=== PATIENT | male | born 1955 | race Caucasian/White ===

== ENCOUNTER 2016-10-21 05:13 | Inpatient (IN) | payer BC, OTHER ==
--- NOTE | 2016-09-28 14:21 | PAT Medication Instructions ---
Service Date Sep 28, 2016. Current Home Medication List Aspirin (Aspirin Ec), 81 MG PO HS Docusate Sodium (Docusate Sodium), 1 CAP PO BID Gabapentin (Neurontin), 1,200 MG PO BID Levothyroxine Sodium (Synthroid), 100 MCG PO QAM Metformin Hcl (Glucophage), 1,000 MG PO BID Naproxen (Naprosyn), 500 MG PO PRN Pravastatin (Pravachol ), 40 MG PO HS Pyridoxine (Vitamin B6), 100 MG PO BID Quinapril Hcl (Accupril), 5 MG PO QAM Thiamine Mononitrate (Vitamin B1), 100 MG PO BID Vitamins C & E (Vitamin C), 1 TAB PO QAM [Glimepiride], 1 TAB PO PRN [Iron], 1 TAB PO QAM Medication Instructions For Your Scheduled Surgery - Check with surgeon for instructions: Naproxen (Naprosyn), 500 MG PO PRN - Hold the following medications 48 hours prior to surgery: Metformin Hcl (Glucophage), 1,000 MG PO BID - Hold the following medications the morning of surgery: [Glimepiride], 1 TAB PO PRN Thiamine Mononitrate (Vitamin B1), 100 MG PO BID Vitamins C (Vitamin C), 1 TAB PO QAM [Iron], 1 TAB PO QAM Quinapril Hcl (Accupril), 5 MG PO QAM Docusate Sodium (Docusate Sodium), 1 CAP PO BID Pyridoxine (Vitamin B6), 100 MG PO BID - Take the following medications the morning of surgery with a sip of water: Levothyroxine Sodium (Synthroid), 100 MCG PO QAM Gabapentin (Neurontin), 1,200 MG PO BID - Take the following medications as scheduled the night before surgery: Thiamine Mononitrate (Vitamin B1), 100 MG PO BID Gabapentin (Neurontin), 1,200 MG PO BID Docusate Sodium (Docusate Sodium), 1 CAP PO BID Aspirin (Aspirin Ec), 81 MG PO HS (okay to continue per surgeon) Pravastatin (Pravachol ), 40 MG PO HS Pyridoxine (Vitamin B6), 100 MG PO BID If you have any questions please call us at [phone] or [phone] or [phone]
[2016-09-28 14:50] LABS: BASO % 0.4 %; BASO ABS # 0.02 K/uL (0-0.2); COMPLETE YES; EOS % 2.6 %; HEMATOCRIT 36.7 % (42-52); IG% 0.2 %; LYMPH % 29.5 %; LYMPH ABS # 1.62 K/uL (1.2-3.4); MEAN CELL VOLUME 93.4 fL (80-100); MEAN CORPUSCULAR HEMOGLOBIN 31.8 pg (25-34); MEAN CORPUSCULAR HGB CONC 34.1 g/dl (32-36); MEAN PLATELET VOLUME 9.2 fL (7.4-10.4); MONO % 10.6 %; NEUT % 56.7 %; PLATELET COUNT 163 K/uL (130-400); RED BLOOD COUNT 3.93 M/uL (4.7-6.1); WHITE BLOOD COUNT 5.49 K/uL (4.8-10.8)
[2016-09-28 14:56] LABS: BUN/CREATININE RATIO 21.4 (10-20); CALCIUM 9.1 mg/dl (8.5-10.1); CREATININE 0.94 mg/dl (0.60-1.40); POTASSIUM 5.1 mmol/L (3.5-5.1)
[2016-09-28 14:58] LABS: URINE APPEARANCE CLEAR (CLEAR); URINE BILIRUBIN NEG (NEG); URINE COLOR YELLOW; URINE NITRITE NEG (NEG); URINE SPECIFIC GRAVITY 1.021 (1.000-1.030); UROBILINOGEN NEG (NEG)
[2016-09-28 14:59] LABS: PARTIAL THROMBOPLASTIN RATIO 1.1; PROTHROMBIN TIME (PATIENT) 10.2 SECONDS (9.0-12.0)
[2016-09-28 15:00] LABS: MANUAL MICROSCOPIC REQUIRED? NO; REVIEW REQ? NO
--- NOTE | 2016-10-20 16:52 | HISTORY & PHYSICAL EXAMINATION ---
DATE OF ADMISSION: 10/21/2016 CHIEF COMPLAINT: Severe osteoarthritis of the left hip. HISTORY OF PRESENT ILLNESS: Dago is a pleasant 61-year-old male who presented to my office with chronic left hip pain. He states he fractured his hip about 27 years ago. He had a screw placed and then later removed. Unfortunately, he has gone on to develop advanced osteoarthritis of the left hip. He has difficulty ambulating. He has elected to proceed with a left total hip arthroplasty. PAST MEDICAL HISTORY: Significant for non-insulin diabetes and hypertension and hypothyroidism. PAST SURGICAL HISTORY: Significant for spinal surgery x2 and a left hip fracture in 1989. ALLERGIES: PENICILLIN. MEDICATIONS: Metformin 1000 mg twice a day, quinapril 5 mg daily, pravastatin 40 mg daily, Synthroid 100 mcg daily, gabapentin 600 mg 4 times a day, baby aspirin, vitamin B1, vitamin B6, docusate and Naprosyn as needed. FAMILY HISTORY: Noncontributory. SOCIAL HISTORY: He is , has 1-2 drinks a day. Denies any tobacco or IV drug use. He remains active. REVIEW OF SYSTEMS: He complains of severe left hip pain. All other pertinent review of systems is negative. PHYSICAL EXAMINATION: GENERAL: He is awake, alert and oriented x3. He is in no apparent distress. He is very pleasant. HEENT: Pupils are equal, round and reactive to light. Extraocular motions intact. Oral mucosa is pink and moist. HEART: Regular rate per radial pulse. LUNGS: Sonia symmetrically bilaterally with no audible breath sounds. ABDOMEN: Soft, nontender, nondistended. MUSCULOSKELETAL: On physical examination of the left hip. He has severely decreased range of motion and flexion barely to 90 degrees, with zero internal or external rotation. He walks with a very antalgic gait. His leg lengths are essentially equal. IMAGING: X-rays of the hip do show advanced osteoarthritis of the left hip with complete loss of joint space and osteophyte formation. IMPRESSION: Advanced osteoarthritis of the left hip. PLAN: We will proceed with a left total hip arthroplasty. Postoperatively, he will be started on aspirin for DVT prophylaxis. He will likely stay for 2 midnights for postoperative medical management. [facility]
[~2016-10-21] VITALS: Ht 180.3 cm; Wt 65.5 kg
[2016-10-21] VITALS (10 sets, daily range): BP systolic 101–118; BP diastolic 59–72; PULSE 50–85; TEMP 36.3–36.5; O2SAT 95–100; Ht 180.3 cm; Wt 65.5 kg
[~2016-10-21 05:13] MED LIST: ASPI81TA28 PO; DOCU100C31 PO; GABA-113 PO; GLIMEPIRIDE PO; IRON PO; LEVO100T PO; METF-384 PO; NAPR-1169 PO; PRAV20TA PO; PYRI100T4 PO; QUIN10TA25 PO; THIA1TAB11 PO; VITACAP26 PO
[2016-10-21] MEDS: LEVOTHYROXINE 100 MCG TAB PO SCH (06:00)
[2016-10-21] MEDS ORDERED: LACTATED RINGER'S 1000ML IV SCH (06:00)
[2016-10-21] MEDS ORDERED: LACTATED RINGER'S 1000ML 500 ML IV ONE (06:00)
[2016-10-21] MEDS ORDERED: ACETAMINOPHEN 500 MG TAB PO SCH (06:00)
[2016-10-21] MEDS ORDERED: ROPIVACAINE 5MG/ML 30 ML 150 MG, BUPIVACAINE/EPINEPHR 0.5% MPF 30 ML, KETOROLAC TROMETH... INFIL SCH ×7 (06:00)
[2016-10-21] MEDS ORDERED: LACTATED RINGER'S 1000ML 1,000 ML IV SCH (06:00)
[2016-10-21] MEDS ORDERED: FAMOTIDINE 20 MG TAB PO SCH (06:00)
[2016-10-21] MEDS ORDERED: VANCOMYCIN 1GM/270ML NSS 270 ML IV SCH (06:00)
[2016-10-21] MEDS ORDERED: GABAPENTIN 300 MG CAP PO SCH (06:00)
[2016-10-21] MEDS ORDERED: BUPIVACAINE 0.5 % 5 MG/1 ML PF 10ML VIAL ONE (06:28)
[2016-10-21] MEDS: TRANEXAMIC ACID INJ 1,000 MG in SODIUM CHLORIDE 0.9% 100ML 100 ML IV SCH ×2 (06:30→06:55)
--- NOTE | 2016-10-21 06:32 | History & Physical Bridge Note ---
H&P Re-Evaluation Bridge Note: I have examined the patient, reviewed the History & Physical and in the interval since the performance of the History & Physical I have noted the following changes of clinical significance: No changes noted
[2016-10-21] MEDS ORDERED: ORTHO JOINT ANESTHETIC ONE (06:35)
[2016-10-21] MEDS ORDERED: BACITRACIN 50000 UNIT VIAL ONE ×2 (06:35→06:40)
[2016-10-21] MEDS ORDERED: FENTANYL CITRATE INJ 50 MCG/1 ML 2 ML VIAL ONE (06:46)
[2016-10-21] MEDS ORDERED: MIDAZOLAM HCL 1 MG/ML 2ML VIAL ONE ×2 (06:46)
[2016-10-21] MEDS ORDERED: PROPOFOL IV EMULSION 10 MG/ML 20 ML VIAL IV ONE (07:53)
--- NOTE | 2016-10-21 08:48 | [facility] Post Operative Brief Note ---
Immediate Operative Summary Operative Date Oct 21, 2016. Pre-Operative Diagnosis Advanced Osteoarthritis Left Hip Post-Operative Diagnosis Advanced Osteoarthritis Left Hip Procedure(s) Performed Left Anterior Total Hip Arthroplasty--Uncemented Surgeon Dr. Norwood Crate Tier Surgeon(s) BRYON Miller Estimated Blood Loss 150 ml Findings as above Specimens A. Left Femoral Head Complication(s) None Disposition Recovery Room / PACU
[2016-10-21] MEDS ORDERED: SOD PHOSPHATE/SOD BIPHOSPHATE ENEMA 132 ML BTL PR PRN (09:00)
[2016-10-21] MEDS ORDERED: DEXTROSE 50% 50 ML SYR IV PRN (09:00)
[2016-10-21] MEDS ORDERED: DOCUSATE SODIUM 100 MG CAP PO SCH (09:00)
[2016-10-21] MEDS ORDERED: MAGNESIUM HYDROXIDE SUSP 30 ML UDC PO PRN (09:00)
[2016-10-21] MEDS ORDERED: GLUCOSE 40% GEL 15 GM TUBE PO PRN (09:00)
[2016-10-21] MEDS ORDERED: SILVER SULFADIAZINE 1% CR 50 GM JAR EXT PRN (09:00)
[2016-10-21] MEDS ORDERED: METOCLOPRAMIDE HCL INJ 5 MG/ML 2 ML VIAL IV PRN (09:00)
[2016-10-21] MEDS ORDERED: MoRPHine SULFATE 2 MG/ML CARP IV PRN (09:00)
[2016-10-21] MEDS ORDERED: GLUCOSE 10 TABS/TUBE PO PRN (09:00)
[2016-10-21] MEDS ORDERED: BISACODYL 10 MG SUPP PR PRN (09:00)
[2016-10-21] MEDS ORDERED: ONDANSETRON INJ 2 MG/ML 2 ML VIAL IV PRN ×2 (09:00→09:30)
[2016-10-21] MEDS ORDERED: GLUCAGON FOR INJ 1 MG VIAL SQ PRN (09:00)
--- NOTE | 2016-10-21 09:07 | DIAGNOSTIC IMAGING REPORT ---
FLUOROSCOPIC IMAGES OF THE LEFT HIP CLINICAL HISTORY: LEFT ANTERIOR HIP COMPARISON STUDY: Pelvis and left hip radiograph September 28, 2016. Fluoroscopy time: 33 seconds. FINDINGS: 3 intraoperative fluoroscopic images during total left hip arthroplasty were obtained. Hardware is intact. An acetabular screw is noted. There is no acute fracture or unexpected radiopaque foreign body. IMPRESSION: Expected intraoperative findings during total left hip arthroplasty. Electronically signed by: Judah Sapp M.D. 10/21/2016 9:06 AM Dictated Date/Time: 10/21/2016 9:04 AM
--- NOTE | 2016-10-21 09:16 | OPERATIVE REPORT ---
DATE OF OPERATION: 10/21/2016 PREOPERATIVE DIAGNOSIS: Primary osteoarthritis of the left hip. POSTOPERATIVE DIAGNOSIS: Same. PROCEDURE: Left total hip arthroplasty. SURGEON: Dr. Gentry Norwood. UMBRELLA TIPPER: Osmel Denny PA-C, whose assistance was necessary for retraction and closure. ANESTHESIA: Spinal. COMPLICATIONS: None. CONDITION: Stable to PACU. IMPLANTS USED: I used a [employer] Taperloc total hip arthroplasty system with a size 13 standard offset pressfit Taperloc stem, a size 52 G7 cup with a single 25 mm screw, E1 poly liner and a size 36 0 neck ceramic head. INDICATIONS: Dago is a pleasant 61-year-old male who initially injured his hip about 27 years ago. Apparently he states he had a screw placement in his hip and then later removed. Unfortunately, he has gone on to develop arthritis of his hip. After failing extensive conservative treatment, he has elected to proceed with a total hip arthroplasty. OPERATION AND FINDINGS: On 10/21/2016 he arrived at [facility] for the above procedure. He was seen in the preoperative holding area and the operative extremity was identified and signed. He was given a preoperative antibiotic and a spinal anesthetic. He was taken back to the operating room, laid on the table in supine position and given basic sedation. The left leg was brought out to a Purist leg positioner and the left hip was prepped and draped in sterile fashion. Time-out was done and the patient's extremity was properly identified. An anterior approach was used. Dissection was taken down to the tensor and the tensor was retracted laterally and the rectus was retracted medially. The circumflex vessels were ligated and the capsule was easily exposed. The capsule was incised for later repair. The hip was exposed and the femoral neck was resected. The femoral head was then removed. The acetabulum was then exposed. Sequential reaming up to a size 51 reamer was done. This was done under fluoroscopy. A final size 52 G7 cup was then impacted into place. A single 25 mm screw was placed and the A1 poly was snapped into place. The proximal femur was then exposed. Sequential broaching up to a size 13 broach was done. A standard humeral neck and humeral head was trialed. This seemed to give a good fit. Fluoroscopic images showed anatomic alignment. The hip was then dislocated. The trials were removed. The final Taperloc standard offset size 13 stem was impacted into place. A 0 neck size 36 ceramic head was then impacted on the stem and the hip was reduced. Final fluoroscopic x-rays showed anatomic alignment and length. The wound was then irrigated. The surrounding soft tissues were injected with 100 mL orthopedic pain control cocktail. The wound was then irrigated again with 3 liters of normal saline solution with bacitracin. The capsule was then closed with #1 Vicryl sutures, the fascia was closed with #1 PDS suture, skin was closed with 3-0 Vicryl, a 3-0 V-Loc suture and topher. He was placed in a soft compressive dressing and taken to the postanesthesia care unit in stable condition. He tolerated the procedure well. I attest to the content of the Intraoperative Record and any orders documented therein. Any exception s are noted below.
--- NOTE | 2016-10-21 09:24 | DIAGNOSTIC IMAGING REPORT ---
AP PELVIS, CROSSTABLE LATERAL LEFT HIP History: Left total hip arthroplasty. Degenerative arthritis. Postop. FINDINGS: The patient is status post a left total hip arthroplasty. The hardware is intact. No fracture or dislocation. Skin topher are in place. IMPRESSION: Left total hip arthroplasty. No evidence for hardware complication. Electronically signed by: Khurram Hui M.D. 10/21/2016 9:22 AM Dictated Date/Time: 10/21/2016 9:21 AM
[2016-10-21] MEDS ORDERED: FENTANYL CITRATE INJ 50 MCG/1 ML 2 ML VIAL IV PRN (09:30)
[2016-10-21] MEDS ORDERED: ATROPINE SULFATE 0.1 MG/ML 5ML SYR IV PRN (09:30)
[2016-10-21] MEDS ORDERED: EpHEDrine SULFATE INJ 50 MG/ML AMP IV PRN (09:30)
--- NOTE | 2016-10-21 10:15 | Anesthesiology Progress Note ---
Anesthesia Post Op Note Date & Time Oct 21, 2016 at 10:15 Vital Signs Pain Intensity: 0 Vital Signs Past 12 Hours Date Time Temp Pulse Resp B/P (MAP) Pulse Ox O2 Delivery O2 Flow Rate FiO2 10/21/16 10:00 36.4 52 16 112/68 100 Nasal Cannula 3 10/21/16 09:45 54 14 116/66 100 Nasal Cannula 3 10/21/16 09:35 54 16 111/67 100 Nasal Cannula 3 10/21/16 09:25 60 16 110/66 100 Nasal Cannula 3 10/21/16 09:15 54 16 117/64 100 Nasal Cannula 3 10/21/16 09:05 48 16 111/61 100 Nasal Cannula 3 10/21/16 08:56 36.6 52 16 99/71 100 Nasal Cannula 3 10/21/16 06:05 36.5 60 18 106/66 99 Room Air Notes Mental Status: alert / awake / arousable, participated in evaluation Pt Amnestic to Procedure: Yes Nausea / Vomiting: adequately controlled Pain: adequately controlled Airway Patency, RR, SpO2: stable & adequate BP & HR: stable & adequate Hydration State: stable & adequate Anesthetic Complications: no major complications apparent
[2016-10-21] MEDS ORDERED: PHARMACY GLYCEMIC MGMT CONSULT PRN (10:45)
[2016-10-21] MEDS: SODIUM CHLORIDE 0.9% 1000ML 1,000 ML IV SCH ×2 (11:27→21:28)
--- NOTE | 2016-10-21 11:34 | Pharmacy Progress Note ---
Glycemic Control Intl Consult Date of Service Oct 21, 2016. Scope Glycemic Pharmacist consulted by Dr Norwood on 10/21/16 for glycemic control and to write orders per [facility] inpatient glycemic control protocol Objective Weight (Kilograms): 65.500 Accuchecks BSG (last 24hrs): Test 10/21/16 05:51 Bedside Glucose 143 mg/dl (70-99) Recent Pertinent Medications Outpatient Anti-diabetic Regimen: * Metformin 1g PO BID + Glimepiride __ mg prn ? * A1c = 7 % 07/14/16 Risk Factors for Insulin Resistance: * Steroids: Ortho pre-op (contains dexamethasone 4 mg) * Recent Surgery: POD #0 s/p left total hip arthroplasty * Diet: T2DM Assessment & Plan ASSESSMENT: * 61 yr old T2DM male s/p left total hip arthroplasty * Pt is maintained on oral antidiabetic agents as an outpatient * Will hold oral agents for admission and utilize SQ basal bolus insulin regimen which is the recommended regimen for inpatient glycemic control. * Will initiate weight based insulin dosing for insulin aureila patient and titrate based on BSG trends. * ADA & AACE recommend a goal blood sugar range 140-180 mg/dl for the majority of critically ill & non-critically ill patients. However, more stringent targets may be selected in individual cases. Will utilize more stringent goal of 110-140mg/dl based on patient age & comorbidities. Additionally, tighter glycemic control is warranted to facilitate wound/infection healing. PLAN FOR INPATIENT GLYCEMIC CONTROL: * Holding outpatient oral diabetes medications * Basal insulin with LANTUS 10 units SQ x 1 dose at dinnertime - further basal insulin to be assessed on 10/22 * Correctional Insulin with NOVOLOG per scale ACHS + 00 and 04 checks with coverage * Goal Range: Low 110 mg/dL - High 140 mg/dL * Correction Factor: 30 mg/dL/unit * Nutritional / Prandial insulin per carb ratio of 1 unit per 10 grams CHO consumed * Please note that the plan above was derived based on current level of insulin resistance and hospital stress. These recommendations are appropriate for inpatient admission only. Plan of care upon discharge will need to be reassessed to avoid potential outpatient hypo/hyperglycemia. Thank you.
[2016-10-21] MEDS: KETOROLAC TROMETHAMINE 30 MG/ML VIAL IV. SCH ×3 (12:15→23:30)
[2016-10-21] MEDS: INSULIN ASPART 100 UNITS/ML 3 ML PEN SC SCH ×4 (12:17→23:34)
[2016-10-21] MEDS: ACETAMINOPHEN IV 1,000 MG in EMPTY BAG 0 ML IV SCH ×2 (14:36→21:30)
[2016-10-21] MEDS ORDERED: LANTUS PER UNIT CHARGE SQ SCH (16:00)
[2016-10-21] MEDS ORDERED: VANCOMYCIN INJ 1,000 MG in SODIUM CHLORIDE 0.9% 250ML 250 ML IV SCH (18:00)
[2016-10-21] MEDS: GABAPENTIN 600 MG TAB PO SCH (20:51)
[2016-10-21] MEDS: ASPIRIN 325 MG ECTAB PO SCH (20:51)
[2016-10-21] MEDS: DOCUSATE SODIUM 100 MG CAP PO SCH (20:51)
[2016-10-21] MEDS: PYRIDOXINE HCL 50 MG TAB PO SCH (20:52)
[2016-10-21] MEDS: SENNA 8.6 MG TAB PO SCH (20:52)
[2016-10-21] MEDS: THIAMINE HCL 100 MG TAB PO SCH (20:52)
[2016-10-21] MEDS: PRAVASTATIN SOD 20 MG TAB PO SCH (20:52)
[2016-10-22 03:46] VITALS: BP 119/75; PULSE 60; TEMP 36.3; O2SAT 96
[2016-10-22] MEDS: INSULIN ASPART 100 UNITS/ML 3 ML PEN SC SCH ×5 (03:55→21:12)
[2016-10-22] MEDS: LEVOTHYROXINE 100 MCG TAB PO SCH (05:30)
[2016-10-22] MEDS: KETOROLAC TROMETHAMINE 30 MG/ML VIAL IV. SCH ×3 (05:30→17:45)
[2016-10-22] MEDS: ACETAMINOPHEN IV 1,000 MG in EMPTY BAG 0 ML IV SCH (05:30)
[2016-10-22] MEDS: SODIUM CHLORIDE 0.9% 1000ML 1,000 ML IV SCH (06:35)
[2016-10-22 07:17] VITALS: BP 108/77; PULSE 60; TEMP 36.4; O2SAT 98
[2016-10-22 07:30] LABS: BASO % 0.3 %; BASO ABS # 0.03 K/uL (0-0.2); COMPLETE YES; EOS % 1.1 %; HEMATOCRIT 30.7 % (42-52); IG% 0.2 %; LYMPH % 16.8 %; LYMPH ABS # 1.71 K/uL (1.2-3.4); MEAN CORPUSCULAR HEMOGLOBIN 32.4 pg (25-34); MEAN CORPUSCULAR HGB CONC 34.9 g/dl (32-36); MEAN PLATELET VOLUME 9.9 fL (7.4-10.4); MONO % 11.3 %; NEUT % 70.3 %; PLATELET COUNT 128 K/uL (130-400); WHITE BLOOD COUNT 10.15 K/uL (4.8-10.8)
[2016-10-22 08:08] LABS: CALCIUM 8.2 mg/dl (8.5-10.1); CREATININE 0.69 mg/dl (0.60-1.40)
[2016-10-22 08:32] LABS: ESTIMATED AVERAGE GLUCOSE 148 mg/dl; HA1C FLAG Normal (Normal)
[2016-10-22] MEDS: ASPIRIN 325 MG ECTAB PO SCH ×2 (09:13→21:11)
[2016-10-22] MEDS: PYRIDOXINE HCL 50 MG TAB PO SCH ×2 (09:13→21:12)
[2016-10-22] MEDS: ASCORBIC ACID 500 MG TAB PO SCH (09:13)
[2016-10-22] MEDS: ENALAPRIL MALEATE 5 MG TAB PO SCH (09:14)
[2016-10-22] MEDS: MULTIVITAMIN TAB PO SCH (09:14)
[2016-10-22] MEDS: GABAPENTIN 600 MG TAB PO SCH ×2 (09:14→21:13)
[2016-10-22] MEDS: DOCUSATE SODIUM 100 MG CAP PO SCH ×2 (09:15→21:11)
[2016-10-22] MEDS: PANTOprazole SOD 40 MG TAB PO SCH (09:15)
[2016-10-22] MEDS: OXYCODONE HCL IR 5 MG TAB (IMMEDIATE RELEASE) PO PRN ×2 (09:16→19:52)
[2016-10-22 11:04] VITALS: BP_SYST 90; BP_SYST 95; BP_DIAS 56; BP_DIAS 59; PULSE 60; TEMP 36.5; O2SAT 97
--- NOTE | 2016-10-22 11:15 | PROGRESS NOTE ---
DATE: 10/22/2016 DATE: 10/22/2016 CHIEF COMPLAINT: Status post left total hip arthroplasty postop day #1. PROGRESS: Dago was seen and examined at bedside today. Overall, he is doing very well. He has already taken 2 laps around the nursing station with physical therapy. He has no pain in his hip, has no complaints. PHYSICAL EXAMINATION: LEFT HIP: The incision has a very small amount of serosanguineous drainage. There is no drain. He is neurovascularly intact. LABORATORY DATA: Show an H&H of 10.7 and 30.7. His glucose is 148. His vital signs are all stable on room air and he is voiding on his own. X-rays postoperatively of the left hip show the prosthesis to be in anatomical alignment without any evidence of fracture, dislocation or loosening. IMPRESSION: Status post left total hip arthroplasty postop day #1. PLAN: At this point, he is doing extremely well. He is on aspirin 325 mg twice a day for DVT prophylaxis. He can be up and weightbearing as tolerated. Tomorrow morning the nursing staff will change the dressing and will likely discharge him to home with home health.
[2016-10-22] MEDS: THIAMINE HCL 100 MG TAB PO SCH ×2 (12:52→21:13)
[2016-10-22] MEDS: ACETAMINOPHEN 500 MG TAB PO SCH ×2 (12:53→21:11)
[2016-10-22 15:16] VITALS: BP 105/57; PULSE 65; TEMP 36.4; O2SAT 98
[2016-10-22] MEDS: SENNA 8.6 MG TAB PO SCH (21:11)
[2016-10-22] MEDS: PRAVASTATIN SOD 20 MG TAB PO SCH (21:12)
[2016-10-22 22:51] VITALS: BP 95/58; PULSE 61; TEMP 36.3; O2SAT 97
[2016-10-23] MEDS: KETOROLAC TROMETHAMINE 30 MG/ML VIAL IV. SCH ×2 (00:46→05:39)
[2016-10-23] MEDS: LEVOTHYROXINE 100 MCG TAB PO SCH (05:39)
[2016-10-23] MEDS: ACETAMINOPHEN 500 MG TAB PO SCH (05:40)
[2016-10-23 06:41] VITALS: BP 115/61; PULSE 65; TEMP 36.7; O2SAT 90
[2016-10-23] MEDS ORDERED: ASPEC325 PO (07:30)
[2016-10-23] MEDS ORDERED: RXC5 PO (07:30)
--- NOTE | 2016-10-23 07:31 | Discharge Instructions ---
Discharge Instructions Date of Service Oct 23, 2016. Admission Reason for Admission: Left Hip Degenerative Joint Disease Discharge Discharge Diagnosis / Problem: Left Total Hip Discharge Goals Goal(s): Decrease discomfort, Improve function Activity Recommendations Activity Limitations: as noted below . Instructions / Follow-Up Instructions / Follow-Up Activity and Therapy Recommendations: * If you are using [facility] then Physical Therapy will be provided until they feel you are ready to start Outpatient Physical Therapy. If you are not using a Home Health agency then Outpatient Physical Therapy should start about 3-5 days from your day of surgery. Therapy will last about 3-6 weeks * You were shown a series of exercises in the hospital. Do these exercises three times each day including the exercises you were shown in physical therapy. * Get up and walk several times each day.~ For the first four weeks, try not to stand or walk for more than one hour at a time. If you do stand or walk for more than one hour, you will not hurt anything, but your leg will likely swell.~ ~ * As you feel comfortable, you may change from the walker or crutches to a cane and~then to independent walking. Medications: * Narcotic You will likely be sent home from the hospital with a prescription for the narcotic pain medication that worked best throughout your stay. * Aspirin Most patients will be required to take Aspirin 325mg twice a day for 6 weeks after surgery. This is obtained [id number] and a prescription is not necessary. * Other medications may be prescribed for specific circumstances. If you have any questions, please call the office at . * Resume previous home medications unless otherwise instructed TEDs/Elastic Stockings: The white elastic stockings help limit swelling and prevent blood clots from forming in your legs. The more you wear them, the more they work. Wear them for six weeks. Showering: You may shower 5 days from the day of surgery. Let the soapy shower water run over the topher. Do not scrub or soak the incision. Things To Watch For: * Drainage from the incision site that occurs more than one week after your surgery. * Increased redness at the incision site. * Fever above 102 degrees Fahrenheit. * Unusual chest pain or shortness of breath. * Call [facility] at with any of the above problems Follow-Up Visit: Follow-up with Dr. Norwood 2-3 weeks after your day of surgery. An appointment was probably scheduled when you signed-up for surgery in the office. If you have any questions call Office Instructions: More detailed instructions as well as Frequently Asked Questions were provided in a folder by our office when you signed-up for surgery. Please review these instructions when you get home. If you have any further questions or concerns, please feel free to call the office at [phone] Current Hospital Diet Patient's current hospital diet: Diabetes Type 2 Diet Discharge Diet Recommended Diet: Diabetes Type 2 Diet Procedures Procedures Performed: Left Anterior Total Hip Arthroplasty--Uncemented Pending Studies Studies pending at discharge: no Laboratory Results Hemoglobin A1c Test 10/22/16 06:42 Range/Units Estimated Average Glucose 148 mg/dl Hemoglobin A1c 6.8 H 4.5-5.6 % Medical Emergencies . Who to Call and When: Medical Emergencies: If at any time you feel your situation is an emergency, please call 911 immediately. . Non-Emergent Contact Non-Emergency issues call your: Surgeon Call Non-Emergent contact if: wound has increased drainage, wound has increased redness . "Provider Documentation" section prepared by Gentry Norwood. . VTE Core Measure Inpt VTE Proph given/why not?: Other Anticoagulation (Aspirin 325 twice a day for 6 weeks)
[2016-10-23] MEDS: OXYCODONE HCL IR 5 MG TAB (IMMEDIATE RELEASE) PO PRN (07:53)
[2016-10-23] MEDS: ENALAPRIL MALEATE 5 MG TAB PO SCH (07:53)
[2016-10-23] MEDS: DOCUSATE SODIUM 100 MG CAP PO SCH (07:53)
[2016-10-23] MEDS: PANTOprazole SOD 40 MG TAB PO SCH (07:54)
[2016-10-23] MEDS: GABAPENTIN 600 MG TAB PO SCH (07:54)
[2016-10-23] MEDS: PYRIDOXINE HCL 50 MG TAB PO SCH (07:54)
[2016-10-23] MEDS: ASPIRIN 325 MG ECTAB PO SCH (07:55)
[2016-10-23] MEDS: ASCORBIC ACID 500 MG TAB PO SCH (07:55)
[2016-10-23] MEDS: MULTIVITAMIN TAB PO SCH (07:55)
[2016-10-23] MEDS: INSULIN ASPART 100 UNITS/ML 3 ML PEN SC SCH (07:59)
--- NOTE | 2016-10-23 08:00 | PROGRESS NOTE ---
DATE: 10/23/2016 CHIEF COMPLAINT: Status post left total hip arthroplasty, postop day #2. PROGRESS: Dago was seen and examined at bedside today. Overall, he is doing very well. He really has no pain in the hip. He is working well with physical therapy, has no complaints. PHYSICAL EXAMINATION: LEFT HIP: The dressing is clean and dry and it has not changed. He is neurovascularly intact. His leg lengths were equal. IMPRESSION: Status post left total hip arthroplasty, postoperative day #2. PLAN: At this point, he is doing very well. He will be seen by physical therapy one more time this morning. We will discharge him to home with [facility] later today.
[2016-10-23 08:35] VITALS: BP 115/61; PULSE 65; TEMP 36.7; O2SAT 90
--- NOTE | 2016-10-23 22:08 | DISCHARGE SUMMARY ---
DISCHARGE DIAGNOSIS: Primary osteoarthritis of the left hip. PROCEDURE: Left total hip arthroplasty on 10/21/[address] Gentry Norwood. DISCHARGE INSTRUCTIONS: 1. Aspirin 325 mg twice a day for 6 weeks. 2. Oxycodone 5-10 mg every 4 hours as needed for pain. 3. Dulcolax 100 mg twice a day. 4. Neurontin 1200 mg twice a day. 5. Synthroid 100 mg daily. 6. Glucophage 1000 mg twice a day. 7. Naprosyn 500 mg daily. 8. Pravachol 40 mg at night. 9. Vitamin B6 100 mg twice a day. 10. Accupril 500 mg daily. 11. Vitamin B 100 mg twice a day. 12. Vitamin C 1 tab daily. 13. Glimepiride 1 tab as needed. 14. Follow up with Dr. Norwood in 2 weeks. 15. Call the office of Dr. Norwood with any questions or concerns. HOSPITAL COURSE: Dago is a pleasant 61-year-old male who presented to my office with chronic left hip pain. X-rays and clinical examination were diagnostic for osteoarthritis of the left hip. After failing conservative treatment, he elected to undergo a left total hip arthroplasty. On 10/21/2016, he arrived at [facility] and underwent a left hip replacement without complications. He had a spinal anesthetic. Postoperatively, he was discharged to general orthopedic floors. His hospital course was uneventful. On postop day #1, his H&H was stable at 10.7 and 30.7. He was able to get up and ambulate well with physical therapy. He had very little pain. On postop day #2, the dressing was changed. He continued to work well with physical therapy and his pain was controlled. He was subsequently discharged to home with oral pain medications, [facility] the above instructions.
[2016-11-18] MEDS ORDERED: OXYCODONE PO (13:40)
[2016-11-18] MEDS ORDERED: ASPI81TA28 PO (13:40)
== END 2016-10-23 10:10 | disposition home health service (06) | DRG 470 ==
LOC: C.ACU 05:13 → C.3E 08:54 → ENRESERV 09:37 → EDSTATUS 13:30
PROVIDERS: ADMIT Orthopaedic Surgery; ATTEND Orthopaedic Surgery
PROC: 0SRB0JA Replacement of Left Hip Joint with Synthetic Substitute, Uncemented, Open Approach (ICD-10-PCS; principal; 2016-10-21 07:00)
DX: M16.12 Unilateral primary osteoarthritis, left hip (principal); E78.00 Pure hypercholesterolemia, unspecified; R20.0 Anesthesia of skin; M54.2 Cervicalgia; E11.9 Type 2 diabetes mellitus without complications; M54.10 Radiculopathy, site unspecified; I10 Essential (primary) hypertension; E03.9 Hypothyroidism, unspecified; Z79.82 Long term (current) use of aspirin; Z79.84 Long term (current) use of oral hypoglycemic drugs; Z79.899 Other long term (current) drug therapy; Z79.1 Long term (current) use of non-steroidal anti-inflammatories (NSAID); Z87.891 Personal history of nicotine dependence; Z86.718 Personal history of other venous thrombosis and embolism

== ENCOUNTER → 2016-11-07 | Outpatient (CLI) | payer BC ==
[~2016-11-07] MED LIST changes: +ASPEC325 PO; +OXYCODONE PO; +RXC5 PO
[2016-11-07 14:43] LABS: SYNOVIAL FLUID APPEARANCE CLOUDY; SYNOVIAL FLUID COLOR AMBER; SYNOVIAL FLUID MONONUC RELAT 6.1 %; SYNOVIAL FLUID POLYNUC RELAT 93.9 %
[2016-11-10 00:29] LABS: LYME DNA PCR CSF OR SYNOVIAL Not detected (Not Detected); LYME DNA SOURCE Synovial Fluid
== END | disposition home or self-care (01) ==
LOC: C.LABBC 11:23
PROVIDERS: ATTEND Orthopaedic Surgery
DX: M25.452 Effusion, left hip (principal); Z96.642 Presence of left artificial hip joint